=== PATIENT | female | born 1980 | race Hispanic/Latino ===

== ENCOUNTER 2017-01-14 06:33 | Emergency (ER) | payer OTHER ==
[~2017-01-14] VITALS: Ht 162.6 cm; Wt 88.2 kg
[~2017-01-14 06:33] MED LIST: DOCU-41 PO; HYDR-4003 PO; IBUP200C PO; NORE-72 PO
[2017-01-14 06:35] VITALS: BP 116/79; PULSE 74; RESP 16; O2SAT 100
--- NOTE | 2017-01-14 06:56 | ED.REPORT ---
HPI- Female Date of Service Jan 14, 2017 ED Provider: Isabella Edwards MD Pt is a 36 y.o. female who is reportedly 9 weeks presents to the ED c/ o vaginal bleeding onset 3 days ago. Pt states that she noticed that she was "spotting" 3 days ago and yesterday developed abdominal cramping and low back pain. She reports passing a large blood clot 1 hour prior to arrival. She denies fever, vomiting, and dizziness. Her first appointment with OB was scheduled for 01/19/17. She denies a hx of miscarriage and recent illness. Nursing Notes Stated Complaint: 9 WKS VAGINAL BLEEDING/CRAMPS Chief Complaint: Female Abdominal Pain Nursing Notes Reviewed: Yes Allergies: Coded Allergies: No Known Allergies (Unverified , 07/18/16) Scheduled Norethindrone A-E Estradiol (Chrystal) 1 Each Tablet 1 EACH PO DAILY Scheduled PRN Docusate Sodium (Colace) 100 Mg Capsule 100 MG PO BID PRN PRN For Constipation Hydrocodone-Acetaminophen 5-325 mg (Hydrocodone-Acetaminophen 5-325 mg) 1 Each Tablet 1-2 TABLET PO Q6H PRN PRN For Pain Ibuprofen (Ibuprofen) 200 Mg Capsule 200 MG PO QID PRN PRN For Pain General Time Seen by MD: 06:55 Chief Complaint Vaginal bleeding... Hx Obtained From: Patient Arrived By: Walk-in Sudden in Onset?: Yes Onset Occurred: 3 days ago Context of Onset: , 1st trimester Symptom Duration: Since onset Location: : Abdomen upper Quality: Cramping, Painful Severity: Current: Moderate Status: Positive - home urine HCG Past Medical History Past Medical History Healthy Past Surgical History DNC Cosmetic ear surgery Smoking History Former Smoker Social History Alcohol Use: "Social" Drug Use: Denies drug use Ambulatory Status Independent Review of Systems Review of Systems Note: no fever, vomitting, dizziness Basic Review of Systems Respiratory: No shortness of breath Cardiovascular: No chest pain, No dyspnea on exertion Psychiatric: Normal thought content Constitutional: Denies: Fever GI: Reports: Abdominal pain, Denies: Vomiting Female: Reports: , Vaginal bleeding - abnl Neurologic: Denies: Dizziness Complete sys rev & neg: except as marked. Physical Exam Initial Vital Signs Vital Signs (First) Date Time Temp Pulse Resp B/P Pulse Ox O2 Delivery O2 Flow Rate FiO2 01/14/17 06:35 36.1 74 16 116/79 100 Room Air Initial VS: Reviewed Head / Eyes: Atraumatic, Normocephalic Extremities: Vascular intact, Neuro intact Neurologic: Alert, Oriented, Nonfocal Psychiatric: Mood/affect normal, Behavior normal, Normal thought content General/Constitutional: Awake, Alert, No acute distress, Well appearing, Well developed, Well hydrated, Well nourished, Not toxic appearing Respiratory / Chest: Atraumatic, Breath sounds NL, Breath sounds = bilat, No respiratory distress, No wheezing Cardiovascular: Heart rate NL, Regular rhythm, Heart sounds NL, No murmurs, Peripheral circulation NL Abdomen: Atraumatic, Soft, Non-tender Skin: Atraumatic, Color NL, Warm, Dry, Intact Well perfused : Contractions not present Bedside US shows spontaneous miscarriage Interpretation & Diagnostics Interpretation & Diagnostics: O+ blood Lab Results Interpretation Result Diagram: 01/14/17 0815 Test 01/14/17 08:15 White Blood Count 8.6th/mm3 (3.8-10.1) Red Blood Count 4.62mil/mm3 (3.90-5.20) Hemoglobin 13.3g/dL (12.0-15.6) Hematocrit 39.9% (35.0-46.0) Mean Corpuscular Volume 86.4fL (81-100) Mean Corpuscular Hemoglobin 28.8pg (27.0-35.0) Mean Corpuscular Hemoglobin Concent 33.3% (32.0-37.0) Red Cell Distribution Width 13.0% (12.3-15.4) Platelet Count 217bil/L (150-400) Neutrophils (%) (Auto) 69.4% (40-74) Lymphocytes (%) (Auto) 21.6% (14-46) Monocytes (%) (Auto) 7.0% (4-12) Eosinophils (%) (Auto) 1.6% (0-5) Basophils (%) (Auto) 0.2% (0-3) Hold Blue Top Tube Received (Received) Hold Red Top Tube Received (Received) Hold [place] Top Tube Received (Received) Hold Maria Top Tube Received (Received) US Focused OB Bedside US: Uterus measures 5x6 cm Endometrial debri present with no identified pole Exam Performed by: ED physician Exam Type: Diagnostic Exam Interpreted by: ED physician Indication: by patient hx, Vaginal bleeding Findings: Intrauterine preg absent Interpretation: No definite intraut preg Re-Eval/Medical Decision Source of Hx: Old records Re-Evaluation/Progress #1: Time of Eval: 07:05 Re-Evaluation/Progress Note: Bedside ultrasound performed. Discussed need for blood test to determine Rh status. Pt understands and agrees with plan. Re-Evaluation/Progress #2: Time of Eval: 08:53 Re-Evaluation/Progress Note: Pt rechecked. Discussed plan for discharge, pt understands and agrees with plan. Counseled Regarding: Diagnosis, Lab results, Need for follow-up, When/why to return to ED Discharge & Departure Impression: Primary Impression: Spontaneous miscarriage Disposition: Home Discharge Condition All VS Reviewed: Yes Condition: No Change Patient Instructions: Spontaneous Miscarriage (ED) Additional Instructions: Thank you for entrusting us with your care today. Your bedside ultrasound shows that you are having a spontaneous . You should expect heavy bleeding with clots and cramping. You will then experience what feels like a heavy period. Keep your appointment with your [facility] and you can discuss your visit here today. Your blood work also showed that you were Rh- and your blood type is O+ Continue your pre- vitamins I wish you the best as you work your way through this and hope your next goes perfectly. Referrals: NOPCP (PCP) Scribe Attestation Portions of this note were transcribed by Anahi Brady. I, Dr. Edwards personally performed the history, physical exam and medical decision-making; I reviewed and confirmed the accuracy of the information in the transcribed note. Signed by: Vernon Trevino, 01/14/17 and 0855 Isabella Edwards MD Jan 14, 2017 06:56 ANAHI BRADY Jan 14, 2017 07:02
[2017-01-14 08:26] LABS: BASOPHILS % (AUTO) 0.2 % (0-3); EOSINOPHILS % (AUTO) 1.6 % (0-5); Mean Corpuscular Hemoglobin 28.8 pg (27.0-35.0); Mean Corpuscular Volume 86.4 fL (81-100); NEUTROPHILS % (AUTO) 69.4 % (40-74); Platelet Count 217 bil/L (150-400)
[2017-01-14 09:00] VITALS: BP 119/72; PULSE 79; RESP 16; O2SAT 98
== END 2017-01-14 09:01 | disposition home or self-care (01) ==
LOC: SED 06:33
DX: O03.9 Complete or unspecified spontaneous abortion without complication (principal); Z87.891 Personal history of nicotine dependence; Z3A.09 9 weeks gestation of pregnancy